=== PATIENT | female | born 2000 | race Two or more races ===

== ENCOUNTER → 2019-11-12 | Emergency (ER) | payer MEDICAID, OTHER ==
[~2019-11-12] VITALS: Ht 162.6 cm; Wt 86.2 kg
[~2019-11-12] MED LIST: SODIUM CHLORIDE 0.9% 1,000 ML IV ONE; cefTRIAXone 1GM/50ML D5W 50 ML IV ONE
[2019-11-12 17:43] LABS: Basophils # (auto) 0.1 10 ^3/uL (0-0.2); Eosinophils # (auto) 0.1 10 ^3/uL (0-0.8); Hemoglobin 12.4 g/dL (12.2-16.2); Lymphocytes # (auto) 1.7 10 ^3/uL (0.4-5.4); Neutrophils # (auto) 3.4 10 ^3/uL (1.6-8.6)
[2019-11-12 17:45] LABS: Basophils % (auto) 0.9 % (0.0-2.0); Eosinophils % (auto) 2.3 % (0.0-7.0); Hematocrit 37.2 % (36.0-46.0); Lymphocytes % (auto) 29.9 % (10.0-50.0); Mean Corpuscular Hemoglobin 24.3 pg (28.0-32.0); Mean Corpuscular Hgb Conc. 33.4 g/dL (32.0-36.0); Mean Corpuscular Volume 72.7 fL (80.0-100.0); Monocytes # (auto) 0.4 10 ^3/uL (0-1.3); Monocytes % (auto) 6.3 % (0.0-12.0); Neutrophils % (auto) 60.6 % (37.0-80.0); Nucleated Red Blood Cells % 0.1 %; Platelet Count (auto) 303 10^3/uL (140-450); Red Blood Cells 5.12 10^6/uL (4.0-5.20); Red Cell Distribution Width 18.8 % (11.8-14.3); White Blood Cell 5.6 10^3/uL (4.4-10.8)
[2019-11-12 18:00] LABS: Albumin 3.7 g/dL (3.4-5.0); BUN/Creatinine Ratio 12.8; Potassium 4.1 mmol/L (3.5-5.1)
[2019-11-12 18:03] LABS: Bilirubin, Total 0.5 mg/dL (0.2-1.0); Total Protein 7.5 g/dL (6.4-8.2)
[2019-11-12 19:53] LABS: Urine Bacteria FEW /hpf (None Seen); Urine Blood 2+ /uL (Negative); Urine Mucus MODERATE (None Seen); Urine Specific Gravity 1.033 (1.001-1.035); Urine WBC 311 /hpf (0 - 5); Urine WBC Clumps PRESENT /hpf (None Seen)
[2019-11-12 22:00] VITALS: BP 99/53
== END | disposition home or self-care (01) ==
LOC: ER 17:18
DX: N30.00 Acute cystitis without hematuria (principal); F17.210 Nicotine dependence, cigarettes, uncomplicated; Z32.02 Encounter for pregnancy test, result negative
CPT/HCPCS: 36415; 80053; 81001; 81025; 84702; 85025; 96365; 99284; J0696; J7030

== ENCOUNTER 2021-05-23 09:21 | Emergency (ER) | payer BC, MEDICAID ==
[~2021-05-23] VITALS: Ht 162.6 cm; Wt 77.1 kg
[2021-05-23 09:50] LABS: Eosinophils # (auto) 0.1 10 ^3/uL (0-0.8); Neutrophils # (auto) 3.1 10 ^3/uL (1.6-8.6); Nucleated Red Blood Cells % 0.1 %; White Blood Cell 5.1 10^3/uL (4.4-10.8)
[2021-05-23 09:51] LABS: Basophils # (auto) 0 10 ^3/uL (0-0.2); Basophils % (auto) 0.9 % (0.0-2.0); Eosinophils % (auto) 1.5 % (0.0-7.0); Hematocrit 43.7 % (36.0-46.0); Hemoglobin 14.4 g/dL (12.2-16.2); Lymphocytes # (auto) 1.6 10 ^3/uL (0.4-5.4); Lymphocytes % (auto) 30.8 % (10.0-50.0); Mean Corpuscular Hemoglobin 27.2 pg (28.0-32.0); Mean Corpuscular Volume 82.5 fL (80.0-100.0); Monocytes # (auto) 0.3 10 ^3/uL (0-1.3); Monocytes % (auto) 6.6 % (0.0-12.0); Neutrophils % (auto) 60.2 % (37.0-80.0); Red Cell Distribution Width 14.2 % (11.8-14.3)
[2021-05-23 10:05] LABS: Albumin 4.1 g/dL (3.4-5.0); BUN/Creatinine Ratio 11.8; Calcium 9.7 mg/dL (8.5-10.1); Potassium 3.5 mmol/L (3.5-5.1); Salicylate < 1.7 mg/dL (2.8-20.0)
[2021-05-23 10:20] LABS: Bilirubin, Total 1.5 mg/dL (0.2-1.0); Total Protein 8.3 g/dL (6.4-8.2)
[2021-05-23 10:26] LABS: Acetaminophen < 2.0 ug/mL (10-30)
[2021-05-23 12:47] LABS: Alcohol, Urine < 3.0 mg/dL (0-10); Amphetamine Screen, Urine POSITIVE (NEGATIVE); Barbiturate Scree,Urine NEGATIVE (NEGATIVE); Benzodiazephine Screen, Urine NEGATIVE (NEGATIVE); Cannabinoid Screen, Urine POSITIVE (NEGATIVE); Cocaine Screen, Urine NEGATIVE (NEGATIVE); Phencyclidine Screen, Urine NEGATIVE (NEGATIVE)
[2021-05-23 12:54] LABS: Opiate Scree,Urine NEGATIVE (NEGATIVE)
[2021-05-23 13:35] LABS: Urine Bacteria FEW /hpf (None Seen); Urine Blood Negative /uL (Negative); Urine Mucus FEW (None Seen); Urine Specific Gravity 1.028 (1.001-1.035); Urine WBC 21 /hpf (0 - 5)
[2021-05-23 15:00] VITALS: BP 111/54
== END 2021-05-23 15:18 | disposition home or self-care (01) ==
LOC: ER 09:21
DX: T43.621A Poisoning by amphetamines, accidental (unintentional), initial encounter (principal); E86.0 Dehydration; F17.210 Nicotine dependence, cigarettes, uncomplicated; Y92.89 Other specified places as the place of occurrence of the external cause
CPT/HCPCS: 36415; 80053; 80307; 80329; 81001; 85025; 93005

== ENCOUNTER 2021-06-20 11:15 | Emergency (ER) | payer SELFPAY ==
[~2021-06-20] VITALS: Ht 162.6 cm; Wt 77.1 kg
[2021-06-20 12:23] VITALS: BP 124/77
[2021-06-20 12:33] LABS: Urine Bacteria FEW /hpf (None Seen); Urine Blood Negative /uL (Negative); Urine Mucus FEW (None Seen); Urine Specific Gravity 1.024 (1.001-1.035); Urine WBC 5 /hpf (0 - 5)
== END 2021-06-20 13:58 | disposition home or self-care (01) ==
LOC: ER 11:15
DX: N83.201 Unspecified ovarian cyst, right side (principal); N83.202 Unspecified ovarian cyst, left side; F17.210 Nicotine dependence, cigarettes, uncomplicated; F12.10 Cannabis abuse, uncomplicated
CPT/HCPCS: 76830; 76856; 81001; 81025

== ENCOUNTER → 2021-07-05 | Emergency (ER) | payer MEDICAID ==
[~2021-07-05] VITALS: Ht 162.6 cm; Wt 74.8 kg
[2021-07-05 20:51] VITALS: BP 128/83
== END | disposition home or self-care (01) ==
LOC: ER 19:22
DX: S51.811A Laceration without foreign body of right forearm, initial encounter (principal); F17.210 Nicotine dependence, cigarettes, uncomplicated; W22.8XXA Striking against or struck by other objects, initial encounter; Y93.89 Activity, other specified; Y92.89 Other specified places as the place of occurrence of the external cause; Y99.8 Other external cause status
CPT/HCPCS: 12002